=== PATIENT | female | born 2000 | race Caucasian/White ===

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

== ENCOUNTER 2023-01-06 19:33 | Emergency (ER) | payer BC, OTHER, MEDICAID ==
[~2023-01-06] VITALS: Ht 160 cm; Wt 120.5 kg
[~2023-01-06 19:33] MED LIST: ONDA4TAB6 PO; PANT-47 PO
[2023-01-06 19:41] VITALS: BP 150/95; PULSE 95; RESP 18; TEMP 97.2; O2SAT 100
[2023-01-06 20:16] LABS: ALANINE AMINOTRANSFERASE 40 U/L (12-78); ALBUMIN 3.9 G/DL (3.4-5.0); ALBUMIN/GLOBULIN RATIO 1.1 (1.1-1.5); ALKALINE PHOSPHATASE 52 IU/L (20-180); ANION GAP 7 (8-16); ASPARTATE AMINO TRANSFERASE 21 U/L (10-37); BILIRUBIN,TOTAL 0.6 MG/DL (0.1-1.0); BLOOD UREA NITROGEN 10 MG/DL (7-18); BUN/CREATININE RATIO 12.7 (10.0-20.0); CALCIUM 9.5 MG/DL (8.5-10.1); CHLORIDE 105 MMOL/L (99-107); CREATININE 0.79 MG/DL (0.40-0.90); GLUCOSE 96 MG/DL (70-104); POTASSIUM 3.8 MMOL/L (3.5-5.1); SODIUM 138 MMOL/L (135-145); TOTAL CARBON DIOXIDE 26.1 MMOL/L (24-32); TOTAL PROTEIN 7.3 G/DL (6.4-8.2); eCRCL 94 ML/MIN; eGFR > 90 ML/MIN
[2023-01-06 20:18] LABS: BASOPHILS % (AUTO) 0.5 % (0-1); EOSINOPHILS # (AUTO) 0.2 X10'3 (0-0.9); EOSINOPHILS % (AUTO) 2.2 % (0-6); HEMOGLOBIN 12.5 g/dl (12.0-16.0); LYMPHOCYTES # (AUTO) 2.6 X10'3 (1.1-4.8); LYMPHOCYTES % (AUTO) 31.5 % (21-51); MEAN CORPUSCULAR HEMOGLOBIN 26.5 PG (27.0-31.0); MEAN CORPUSCULAR HGB CONC 33.8 g/dL (33.0-36.5); MEAN CORPUSCULAR VOLUME 78.3 FL (78-98); MEAN PLATELET VOLUME 9.1 FL (7.4-10.4); MONOCYTES # (AUTO) 0.7 X10'3 (0-0.9); NEUTROPHILS # (AUTO) 4.7 X10'3 (1.8-7.7); NEUTROPHILS % (AUTO) 57.8 % (42-75); PLATELET COUNT 221 X10'3 (140-440); RED BLOOD COUNT 4.73 X10'6 (4.20-5.60); RED CELL DISTRIBUTION WIDTH 14.5 % (11.5-14.5); WHITE BLOOD COUNT 8.1 X10'3 (4.5-11.0)
[2023-01-06 20:25] LABS: PRO BRAIN NATRIURETIC PEPTIDE 103 PG/ML (0-125)
== END 2023-01-06 23:08 | disposition home or self-care (01) ==
LOC: ER 19:33
DX: R07.89 Other chest pain (principal)
CPT/HCPCS: 36415; 71045; 80053; 83880; 84484; 85025; 93005; 99285

== ENCOUNTER 2024-01-28 15:05 | Emergency (ER) | payer OTHER, MEDICAID ==
[~2024-01-28] VITALS: Ht 160 cm; Wt 119.8 kg
[2024-01-28 21:08] VITALS: BP 141/92; PULSE 85; RESP 16; TEMP 97.8; O2SAT 98
== END 2024-01-28 21:11 | disposition home or self-care (01) ==
LOC: ER 15:06 → EEVIPCON 15:06 → ER 21:11
DX: Z04.89 Encounter for examination and observation for other specified reasons (principal); F41.9 Anxiety disorder, unspecified; F32.A Depression, unspecified; Z79.899 Other long term (current) drug therapy; Y08.89XA Assault by other specified means, initial encounter; Y93.89 Activity, other specified; Y92.89 Other specified places as the place of occurrence of the external cause; Y99.8 Other external cause status
CPT/HCPCS: 99281; 99283

== ENCOUNTER 2024-12-20 13:23 | Emergency (ER) | payer BC, MEDICAID ==
[~2024-12-20] VITALS: Ht 160 cm; Wt 111.4 kg
[2024-12-20 13:48] VITALS: TEMP 97.1
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
[2024-12-20 15:35] VITALS: BP 133/70; PULSE 106; RESP 18; O2SAT 100
[2024-12-20 16:14] LABS: MEAN PLATELET VOLUME 9.5 FL (7.4-10.4); RED CELL DISTRIBUTION WIDTH 15.4 % (11.5-14.5)
[2024-12-20 16:16] LABS: LEUKOCYTE ESTERASE ,URINE MODERATE (Neg); NITRITES, URINE POSITIVE (Neg); OCCULT BLOOD,URINE NEGATIVE (Neg)
--- NOTE | 2024-12-20 16:19 | RADIOLOGY REPORT ---
EXAM: US US OB HISTORY: 21 weeks s/p fall hasn't felt movement TECHNIQUE: Multiple real-time grayscale images of the gravid uterus with duplex Doppler color flow and M-mode spectral analysis. COMPARISON: None FINDINGS: Breech presentation. Posterior placenta. Cervix measures 4.5 cm heart rate 161 beats per minute BPD 5 cm, 21 weeks 1 day Head circumference 18.9 cm, 21 weeks 2 days Abdominal circumference 16.9 cm, 22 weeks Femur length 3.6 cm, 20 weeks 3 days Femur length to BPD equals 72 Femur length to abdominal circumference equals 21 Head circumference to abdominal circumference equals 1.12 Estimated weight 441 g DAVID 13.59 cm Impression: Single viable intrauterine at 21 weeks 2 days. anatomic survey not performed. anatomic survey strongly recommended.
[2024-12-20 16:22] LABS: UA COLLECTION TYPE NON-SPECIFIED
[2024-12-20 16:24] LABS: MUCUS STRANDS MANY /LPF (Neg); SQUAMOUS EPITHELIAL CELL,UR MANY /LPF (FEW)
[2024-12-20 16:35] LABS: CREATININE 0.45 MG/DL (0.40-0.90); TOTAL CARBON DIOXIDE 24.8 MMOL/L (24-32); eCRCL 162 ML/MIN; eGFR > 90 ML/MIN
== END 2024-12-20 16:04 | disposition home or self-care (01) ==
LOC: EEVIPCON 13:25 → ER 13:25
DX: O9A.212 Injury, poisoning and certain other consequences of external causes complicating pregnancy, second trimester (principal); S40.811A Abrasion of right upper arm, initial encounter; F41.9 Anxiety disorder, unspecified; F32.A Depression, unspecified; Z88.8 Allergy status to other drugs, medicaments and biological substances; Z3A.21 21 weeks gestation of pregnancy; Y04.8XXA Assault by other bodily force, initial encounter; Y93.89 Activity, other specified; Y92.89 Other specified places as the place of occurrence of the external cause; Y99.8 Other external cause status
CPT/HCPCS: 36415; 76805; 80053; 81001; 83735; 84702; 85025; 99284